=== PATIENT | male | born 1935 | race Caucasian/White ===

== ENCOUNTER 2016-10-30 20:37 | Emergency (ER) | payer OTHER ==
[~2016-10-30] VITALS: Ht 182.9 cm; Wt 84.8 kg
[~2016-10-30 20:37] MED LIST: ACYC1CAP16 PO; ATOR20TA15 PO; BUSP10TA PO; BUTA1CAP PO; CLON0.1T PO; COQ-100C2 PO; DICL75TA PO; FISH1000 PO; GLUC15002 PO; MIRA50TA PO; PLAV75TA29 PO; POLY17S PO; ZOLP5TAB3 PO
[2016-10-30 20:39] VITALS: BP_SYST 198; BP_SYST 217; BP_DIAS 102; BP_DIAS 94; PULSE 73; RESP 16; TEMP 98.9; O2SAT 97
--- NOTE | 2016-10-30 20:56 | PD ---
HPI Chief Complaint: Neuro Symptoms/ Deficits Time Seen by Provider: 20:46 Travel History International Travel<30 days: No Contact w/Intl Traveler<30days: No Traveled to known affect area: No History of Present Illness HPI 81-year-old male arrives to the ER by private vehicle due to paresthesias involving the right upper extremity which were first noticed at rest about 2 hours ago. They lasted approximately one hour. The patient has had no symptom otherwise. Illnesses blood pressure was high at home on the order of about 200/ 100. The patient has no complaint in the ER however expresses concern involving billing with his prior visit for a similar complaint. Patient reports he takes Plavix for a history of TIA. A consultation by Dr. Garland performed in March which was about 8 months ago following a similar complaint. Diagnosis of TIA was made in the presence of a negative carotid artery ultrasound, negative brain MRI and an MRA of the head showing nonvisualization of the right vertebral artery with otherwise normal basilar vasculature. PFSH Past Medical History Arthritis: Yes Heart Rhythm Problems: No Cancer: No Cardiovascular Problems: Yes (htn, metronic linq loop recorder placed 04/27/16) High Cholesterol: Yes Chest Pain: No Congestive Heart Failure: No Cerebrovascular Accident: Yes Diabetes: No Diminished Hearing: No Gastrointestinal Disorders: No Genitourinary: Yes (OVER ACTIVE BLADDER) Hypertension: Yes Immune Disorder: No Kidney Stones: Yes Musculoskeletal: Yes Neurologic: Yes Psychiatric: No Reproductive: No Respiratory: No Immunizations Current: No Myocardial Infarction: No Past Surgical History Abdominal Surgery: Yes (HEMRROIDECTOMY 1962;HERNIA) Ear Surgery: Yes Genitourinary Surgery: Yes (PENILE IMPLANT) Thoracic Surgery: Yes (RIB REMOVAL DUE TO PLEURISY AND PNEUMONIA) Other Surgery: Yes Social History Alcohol Use: No Tobacco Use: No Substance Use: No Allergies-Medications (Allergen,Severity, Reaction): Coded Allergies: Oxybutynin (Verified Allergy, Intermediate, Rash, 10/30/16) Reported Meds & Prescriptions Reported Meds & Active Scripts Active Clonidine (Clonidine HCl) 0.1 Mg Tab 0.1 Mg PO BID Reported Plavix (Clopidogrel Bisulfate) 75 Mg Tab 75 Mg PO DAILY Buspirone (Buspirone HCl) 10 Mg Tab 5 Mg PO DAILY Fish Oil (Buchanan-3 Fatty Acids) 1,000 Mg Cap 1.5 Cap PO DAILY Glucosamine 1500 Complex (Idrmgfaipal-Xnqdlcemzrm-Lfs C-) 1 Cap Cap 2 Caplet PO DAILY Coq-10 (Coenzyme Q10 (Ubidecarenone)) 100 Mg Cap 200 Mg PO DAILY Polyethylene Glycol 3350 Powder (Polyethylene Glycol) 17 Gm Pow 17 Gm PO DAILY Fioricet (Duueuoaabf-Zhodjrgnfcjsm-Tuprsben) 50-300-40 Mg Cap 1-2 Cap PO Q6H PRN Zolpidem (Zolpidem Tartrate) 5 Mg Tab 5 Mg PO HS PRN Diclofenac Sodium DR (Diclofenac Sodium) 75 Mg Tabdr 75 Mg PO DAILY PRN Atorvastatin (Atorvastatin Calcium) 20 Mg Tab 20 Mg PO HS Myrbetriq (Mirabegron) 50 Mg Tab 50 Mg PO DAILY Zovirax (Acyclovir) 200 Mg Cap 200 Mg PO BID PRN Review of Systems Except as stated in HPI: all other systems reviewed are Neg General / Constitutional: No: Fever Physical Exam Narrative GENERAL: 81-year-old male well-nourished well-developed pleasant no acute distress SKIN: Focused skin assessment warm/dry. HEAD: Atraumatic. Normocephalic. EYES: Pupils equal and round. No scleral icterus. No injection or drainage. ENT: No nasal bleeding or discharge. Mucous membranes pink and moist. NECK: Trachea midline. No JVD. CARDIOVASCULAR: Regular rate and rhythm. No murmur appreciated. RESPIRATORY: No accessory muscle use. Clear to auscultation. Breath sounds equal bilaterally. GASTROINTESTINAL: Abdomen soft, non-tender, nondistended. Hepatic and splenic margins not palpable. MUSCULOSKELETAL: No obvious deformities. No clubbing. No cyanosis. No edema. NEUROLOGICAL: Speech memory and mentation normal. CNII-XII normal. Normal gait. Cerebellar function normal. PSYCHIATRIC: Appropriate mood and affect; insight and judgment normal. Data Data Last Documented VS Vital Signs Date Time Temp Pulse Resp B/P Pulse Ox O2 Delivery O2 Flow Rate FiO2 10/30/16 20:39 98.9 73 16 217/102 97 198/94 10/30/16 20:39 Room Air Vital signs reviewed Orders Electrocardiogram (10/30/16 20:46) Sodium Chloride 0.9% Flush (Ns Flush) (10/30/16 21:00) Clonidine (Catapres) (10/30/16 21:00) [facility] Medical Decision Making Medical Screen Exam Complete: Yes Emergency Medical Condition: Yes Medical Record Reviewed: Yes Differential Diagnosis Ischemic stroke, hemorrhagic stroke, arrhythmia, hypoglycemia, paresthesia of peripheral etiology Narrative Course The patient has no neurologic deficit on my exam at this time of his arrival or upon reassessment at 2109. A TIA work up was ordered however the patient refused all testing here in the ER. He was very preoccupied with potential bills from his insurance provider, [employer]. The patient will be discharged from the ER with a diagnosis of paresthesia of the right arm. We had a discussion with supervisor in charge present about the role of testing in the ER and the potential for serious complications should the patient leave without undergoing any testing. The discussion occurred at [id number] approximately. The patient verbalized understanding that my recommendation as the doctor of record was for him to undergo blood work, EKG and imaging. He understands that by refusing the testing a diagnosis may be missed and he may consequently suffer complication from the following partial list which includes but is not limited to permanent injury, permanent disability, pain and suffering, financial catastrophic loss, and potentially even . He understands that the nature of our conversation would be recorded in the EMR. As a courtesy to the patient, whose understanding in this scenario is cogent, informed, well reasoned and balanced, and would not be changed based on the discharge diagnosis, we will discharge him with diagnosis as listed below following a long conversation as noted. He states he will see Dr Puri in the morning in his office or at his health club where he sees him every morning. He understands he can return anytime and has verbalized intent to maintain a low threshold to do so. Overall clinical impression is likely TIA, which is in keeping with diagnosis made by our neurologist 8 months ago, however without further testing will be relegated to the fairly non-specific diagnosis of paresthesia and other far more serious diagnoses are not entirely excluded. I re-entered the room after the conversation to double check with the patient about his wishes and even the EKG was discussed. Pt demonstrates excellent capacity for independent decision making. He understands we're most willing to help him any way possible. Diagnosis Primary Impression: Paresthesia of right arm Referrals: Neurologist 1 day Additional Instructions: You have a choice when it comes to health care, and we are glad that you chose [facility]. Hopefully, we have met your expectations on today's visit. You are welcome to return to [facility] at any time, as we are committed to meeting the health care needs of our community. Med/Other Pt SpecificInfo: No Change to Meds Disposition: 01 DISCHARGE HOME Condition: Tyrel Carcamo MD Oct 30, 2016 20:56
[2016-10-30] MEDS ORDERED: SODIUM CHLORIDE 0.9% FLUSH 10 ML FLUSH IVF PRN (21:00)
[2016-10-30] MEDS ORDERED: cloNIDine HCL 0.1 MG TAB PO ONE (21:00)
[2016-10-31] MEDS ORDERED: COQ-100C5 (17:10)
== END 2016-10-30 21:27 | disposition home or self-care (01) ==
LOC: PHED 20:37
DX: R20.2 Paresthesia of skin (principal)
CPT/HCPCS: 99281

== ENCOUNTER 2016-10-31 16:47 | Emergency (ER) | payer OTHER ==
[~2016-10-31] VITALS: Ht 182.9 cm; Wt 81.8 kg
--- NOTE | 2016-10-31 16:56 | PD ---
HPI Chief Complaint: headache Time Seen by Provider: 16:52 Travel History International Travel<30 days: No Contact w/Intl Traveler<30days: No Traveled to known affect area: No History of Present Illness HPI 81-year-old male with history of migraine headaches, TIA, recent cataract surgery on his left eye on September 25, here by ambulance for evaluation of headache. Patient reports that the headache started at around noon and believes that it may have been caused by the sun shining in his left eye which was recently operated on. Headache is now diffuse. There was gradual worsening of his head pain which is now 10 out of 10. Patient has history of migraines, however he reports he has not had a headache in the last 4 years. He also experienced right arm numbness at onset of headache which lasted for about an hour. No weakness or focal deficits. No visual disturbances. No fevers or recent illness. PFSH Past Medical History Anemia: Yes (BORDERLINE) Arthritis: Yes Anxiety: Yes Heart Rhythm Problems: No Cancer: No Cardiovascular Problems: Yes (htn, metronic linq loop recorder placed 04/27/16) High Cholesterol: Yes Chest Pain: No Congestive Heart Failure: No Cerebrovascular Accident: Yes (TIA'S) Diabetes: No Diminished Hearing: No Gastrointestinal Disorders: No Gout: Yes Genitourinary: Yes (OVER ACTIVE BLADDER) Hypertension: Yes Immune Disorder: No Kidney Stones: Yes Musculoskeletal: Yes Neurologic: Yes Psychiatric: No Reproductive: No Respiratory: No Immunizations Current: No Migraines: Yes Myocardial Infarction: No Pneumonia: Yes Shingles: Yes Past Surgical History Abdominal Surgery: Yes (HEMRROIDECTOMY 1962; RIGHT INGUINAL HERNIA) Ear Surgery: Yes Eye Surgery: Yes (LEFT CATARACT: SEPTEMBER 25, 2016) Genitourinary Surgery: Yes (PENILE IMPLANT, TURP: AGE 71) Thoracic Surgery: Yes (RIB REMOVAL DUE TO PLEURISY AND PNEUMONIA) Other Surgery: Yes Social History Alcohol Use: No Tobacco Use: No Substance Use: No Allergies-Medications (Allergen,Severity, Reaction): Coded Allergies: Oxybutynin (Verified Allergy, Intermediate, Rash, 10/30/16) Reported Meds & Prescriptions Reported Meds & Active Scripts Active Clonidine (Clonidine HCl) 0.1 Mg Tab 0.1 Mg PO BID Reported Coq-10 Tr (Coenzyme Q10 (Ubidecarenone)) 100 Mg Cap Plavix (Clopidogrel Bisulfate) 75 Mg Tab 75 Mg PO DAILY Buspirone (Buspirone HCl) 10 Mg Tab 5 Mg PO DAILY Fish Oil ([place]ber[place]-3 Fatty Acids) 1,000 Mg Cap 1.5 Cap PO DAILY Glucosamine 1500 Complex (Tsvqakkkkun-Zpvktwopqrs-Pqn C-) 1 Cap Cap 2 Caplet PO DAILY Polyethylene Glycol 3350 Powder (Polyethylene Glycol) 17 Gm Pow 17 Gm PO DAILY Fioricet (Nswgbyiqzx-Lvkrqjnqcjpjc-Nqxnvbwq) 50-300-40 Mg Cap 1-2 Cap PO Q6H PRN Zolpidem (Zolpidem Tartrate) 5 Mg Tab 5 Mg PO HS PRN Diclofenac Sodium DR (Diclofenac Sodium) 75 Mg Tabdr 75 Mg PO DAILY PRN Atorvastatin (Atorvastatin Calcium) 20 Mg Tab 20 Mg PO HS Myrbetriq (Mirabegron) 50 Mg Tab 50 Mg PO DAILY Zovirax (Acyclovir) 200 Mg Cap 200 Mg PO BID PRN Review of Systems Except as stated in HPI: all other systems reviewed are Neg Physical Exam Narrative GENERAL: Well-developed, well-nourished, comfortable, no acute distress. GCS 15. SKIN: Focused skin assessment warm/dry. No rash. HEAD: Atraumatic. Normocephalic. EYES: Pupils equal and round. No scleral icterus. No injection or drainage. Bilateral corneas are clear. Ocular pressures using the Shawn-Pen shows an average of 21 mmHg in the right eye and 19 mmHg in the left eye. ENT: Mucous membranes pink and moist. NECK: Trachea midline. No JVD. No nuchal rigidity. CARDIOVASCULAR: Regular rate and rhythm. RESPIRATORY: No accessory muscle use. Clear to auscultation. Breath sounds equal bilaterally. GASTROINTESTINAL: Abdomen soft, non-tender, nondistended. MUSCULOSKELETAL: No obvious deformities. No clubbing. No cyanosis. No edema. NEUROLOGICAL: Awake and alert. No obvious cranial nerve deficits. Motor grossly within normal limits. Normal speech. Diffuse resting tremor. No focal deficits or weakness. Normal ixbzpo-wzwy-gaugth test bilaterally. No pronator drift. PSYCHIATRIC: Appropriate mood and affect; insight and judgment normal. Data Data Last Documented VS Vital Signs Date Time Temp Pulse Resp B/P Pulse Ox O2 Delivery O2 Flow Rate FiO2 10/31/16 19:37 82 16 187/96 96 Room Air 10/31/16 17:02 100.0 Orders Electrocardiogram (10/31/16 16:52) Prothrombin Time / Inr (Pt) (10/31/16 16:52) Act Partial Throm Time (Ptt) (10/31/16 16:52) Complete Blood Count With Diff (10/31/16 16:52) Comprehensive Metabolic Panel (10/31/16 16:52) Ct Brain W/O Iv Contrast(Rout) (10/31/16 16:52) Ecg Monitoring (10/31/16 16:52) Iv Access Insert/Monitor (10/31/16 16:52) Oximetry (10/31/16 16:52) Sodium Chloride 0.9% Flush (Ns Flush) (10/31/16 17:00) Metoclopramide Inj (Reglan Inj) (10/31/16 17:00) Hwsv-Fxspl-Jcaa 325-50-40 Mg (Fioricet 3 (10/31/16 17:00) Valproic Acid (Depakene) (10/31/16 16:54) Morphine Inj (Morphine Inj) (10/31/16 18:15) Proparacaine 0.5% Opth Soln (Alcaine 0.5 (10/31/16 19:30) Labs Laboratory Tests Test 10/31/16 17:22 White Blood Count 5.0 TH/MM3 Red Blood Count 3.78 MIL/MM3 Hemoglobin 12.8 GM/DL Hematocrit 36.5 % Mean Corpuscular Volume 96.7 FL Mean Corpuscular Hemoglobin 33.8 PG Mean Corpuscular Hemoglobin 34.9 % Concent Red Cell Distribution Width 11.3 % Platelet Count 173 TH/MM3 Mean Platelet Volume 7.5 FL Neutrophils (%) (Auto) 65.6 % Lymphocytes (%) (Auto) 24.2 % Monocytes (%) (Auto) 8.6 % Eosinophils (%) (Auto) 1.1 % Basophils (%) (Auto) 0.5 % Neutrophils # (Auto) 3.3 TH/MM3 Lymphocytes # (Auto) 1.2 TH/MM3 Monocytes # (Auto) 0.4 TH/MM3 Eosinophils # (Auto) 0.1 TH/MM3 Basophils # (Auto) 0.0 TH/MM3 CBC Comment DIFF FINAL Differential Comment Prothrombin Time 11.5 SEC Prothromb Time International 1.0 RATIO Ratio Activated Partial 26.1 SEC Thromboplast Time Sodium Level 140 MEQ/L Potassium Level 4.1 MEQ/L Chloride Level 103 MEQ/L Carbon Dioxide Level 27.9 MEQ/L Anion Gap 9 MEQ/L Blood Urea Nitrogen 12 MG/DL Creatinine 0.91 MG/DL Estimat Glomerular Filtration 80 ML/MIN Rate Random Glucose 106 MG/DL Calcium Level 8.8 MG/DL Total Bilirubin 0.6 MG/DL Aspartate Amino Transf 24 U/L (AST/SGOT) Alanine Aminotransferase 26 U/L (ALT/SGPT) Alkaline Phosphatase 64 U/L Total Protein 7.5 GM/DL Albumin 3.8 GM/DL Valproic Acid (Depakene) Level 25 MCG/ML [facility] Medical Decision Making Medical Screen Exam Complete: Yes Emergency Medical Condition: Yes Medical Record Reviewed: Yes Differential Diagnosis Migraine headache, tension headache, cluster headache, SAH, meningitis/ encephalitis unlikely Narrative Course Initial vital signs show heart rate 92, blood pressure 202/103, pulse ox 97% on room air CBC shows WBC 5, hemoglobin 12.8, hematocrit 36.5, platelets 173. CMP is unremarkable. Depakote level is 25. CT head: Negative noncontrast head CT. Patient was given a dose of Fioricet, Reglan, and morphine. He was made aware of all findings. Overall he looks very comfortable. There are no focal neurologic findings. He tells me he cannot tell if his headache has improved since receiving any of the medications, however he states he would like to go home. Chart review shows that the patient was here yesterday for right arm paresthesias, however refuse CT head because he did not believe his insurance company would cover it, and requested to be discharged home against the advice of the physician. I told the patient I would like to admit him for overnight observation for symptomatic management and BP controlled. Currently he is not displaying any signs of hypertensive crisis other than headache with elevated blood pressure as well as for further CVA work-up. Again he tells me that he does not want stay in the hospital and would rather go home so he can lay down in his own bed. He states he will follow-up with his primary care physician Dr. Haskins tomorrow. He was informed on when to return to the emergency department. He verbalizes understanding and agreement with plan. Diagnosis Primary Impression: Cephalgia Qualified Code: R51 - Intractable headache, unspecified chronicity pattern, unspecified headache type Additional Impressions: Paresthesia of right arm Elevated blood pressure reading Referrals: Primary Care Physician 1 day Additional Instructions: Follow-up with your primary care physician tomorrow. Return to the emergency department for worsening symptoms or any other concerns. Disposition: 01 DISCHARGE HOME Condition: Ronaldo Ayers MD Oct 31, 2016 16:56
[2016-10-31] MEDS ORDERED: SODIUM CHLORIDE 0.9% FLUSH 10 ML FLUSH IVF PRN (17:00)
[2016-10-31] MEDS ORDERED: ACETAMIN 325 MG/BUTALBITAL 50 MG/CAFFEINE 40 MG TAB PO ONE (17:00)
[2016-10-31] MEDS ORDERED: METOCLOPRAMIDE HCL 10 MG/2 ML VIAL IV PUSH ONE (17:00)
[2016-10-31 17:02] VITALS: BP 202/103; PULSE 92; RESP 16; TEMP 100; O2SAT 97
[2016-10-31 17:10] VITALS: O2SAT 97
[2016-10-31] MEDS ORDERED: COQ-100C5 (17:10)
[2016-10-31 17:40] LABS: AUTOMATED NEUTROPHIL # 3.3 TH/MM3 (1.8-7.7); BASOPHIL % 0.5 % (0.0-2.0); EOSINOPHIL # 0.1 TH/MM3 (0-0.4); EOSINOPHIL % 1.1 % (0.0-4.0); HEMATOCRIT 36.5 % (39.0-51.0); HEMO FLAGS DIFF FINAL; LYMPH % 24.2 % (9.0-44.0); LYMPHOCYTE # 1.2 TH/MM3 (1.0-4.8); MEAN CELL VOLUME 96.7 FL (80.0-100.0); MEAN CORPUSCULAR HEMOGLOBIN 33.8 PG (27.0-34.0); MEAN CORPUSCULAR HGB CONC 34.9 % (32.0-36.0); MONO % 8.6 % (0.0-8.0); NEUT % 65.6 % (16.0-70.0); PLATELET COUNT 173 TH/MM3 (150-450); RED BLOOD COUNT 3.78 MIL/MM3 (4.50-5.90); RED CELL DISTRIBUTION WIDTH 11.3 % (11.6-17.2)
[2016-10-31 17:54] LABS: CHLORIDE 103 MEQ/L (98-107); POTASSIUM 4.1 MEQ/L (3.5-5.1); SODIUM (NA) 140 MEQ/L (136-145)
[2016-10-31 17:57] LABS: ANION GAP 9 MEQ/L (5-15); BICARBONATE 27.9 MEQ/L (21.0-32.0); BLOOD UREA NITROGEN 12 MG/DL (7-18)
[2016-10-31 18:00] LABS: ALT (GPT) 26 U/L (12-78); APTT (PATIENT) 26.1 SEC (24.3-30.1); AST (GOT) 24 U/L (15-37); GLOMERULAR FILTRATION RATE 80 ML/MIN (>89); PROTHROMBIN TIME - PATIENT 11.5 SEC (9.8-11.6)
[2016-10-31 18:02] LABS: TOTAL BILIRUBIN ADULT 0.6 MG/DL (0.2-1.0)
[2016-10-31 18:03] LABS: ALKALINE PHOSPHATASE 64 U/L (45-117)
[2016-10-31] MEDS ORDERED: MORPHINE SULFATE 4 MG/ML INJ IV PUSH ONE (18:15)
[2016-10-31 18:24] VITALS: BP 199/90; PULSE 90; O2SAT 98
[2016-10-31 19:01] VITALS: BP 212/96; PULSE 88; RESP 16; O2SAT 98
--- NOTE | 2016-10-31 19:05 | RADHPO ---
EXAM DATE/TIME: 10/31/2016 18:40 [place] COMPARISON: CT BRAIN W/O CONTRAST, March 29, 2016, 16:38. INDICATIONS : Patient complains of headache and dizziness. RADIATION DOSE: 68.00 CTDIvol (mGy) MEDICAL HISTORY : Hypertension. Cardiovascular disease migranes SURGICAL HISTORY : chest surgery ENCOUNTER: Initial ACUITY: 1 day PAIN SCALE: 5/10 LOCATION: cranial TECHNIQUE: Multiple contiguous axial images were obtained of the head. Using automated exposure control and adj ustment of the mA and/or kV according to patient size, radiation dose was kept as low as reasonably a chievable to obtain optimal diagnostic quality images. FINDINGS: CEREBRUM: The ventricles are normal for age. No evidence of midline shift, mass lesion, hemorrhage or acute in farction. No extra-axial fluid collections are seen. POSTERIOR FOSSA: The cerebellum and brainstem are intact. The 4th ventricle is midline. The cerebellopontine angle i s unremarkable. EXTRACRANIAL: The visualized portion of the orbits is intact. SKULL: The calvaria is intact. No evidence of skull fracture. CONCLUSION: Negative noncontrast head CT. Abad Weinstein MD on October 31, 2016 at 19:03 Board Certified Radiologist. This report was verified electronically.
[2016-10-31] MEDS ORDERED: PROPARACAINE HCL 0.5% OPHT SOLN 15 ML BTL EACH EYE ONE (19:30)
[2016-10-31 19:37] VITALS: BP 187/96; PULSE 82; RESP 16; O2SAT 96
--- NOTE | 2016-11-01 15:02 | EKG ---
Date Performed: 10/31/2016 Time Performed: 17:02:31 PTAGE: 81 years EKG: Sinus rhythm INCOMPLETE RIGHT BUNDLE BRANCH BLOCK Since previous tracing, no significant change noted BORDERLINE ECG PREVIOUS TRACING : 03/29/2016 16.25 DOCTOR: Umer Lawson Interpretating Date/Time 11/01/2016 14:58:01
== END 2016-10-31 19:59 | disposition home or self-care (01) ==
LOC: PHED 16:47
DX: R51 Headache (principal); R20.2 Paresthesia of skin; I10 Essential (primary) hypertension; I45.10 Unspecified right bundle-branch block; E78.00 Pure hypercholesterolemia, unspecified; Z86.73 Personal history of transient ischemic attack (TIA), and cerebral infarction without residual deficits; M10.9 Gout, unspecified; Z87.442 Personal history of urinary calculi
CPT/HCPCS: 70450; 80053; 80164; 85025; 85610; 85730; 93005; 96374; 96375; 99285; J2270; J2765

== ENCOUNTER 2016-11-01 09:45 | Emergency (ER) | payer OTHER ==
[~2016-11-01] VITALS: Ht 182.9 cm; Wt 87.0 kg
[~2016-11-01 09:45] MED LIST changes: -COQ-100C2 PO; +COQ-100C5
[2016-11-01 09:51] VITALS: BP 144/73; PULSE 74; RESP 16; TEMP 98.4; O2SAT 96
[2016-11-01] MEDS ORDERED: PROCHLORPERAZINE INJ 10 MG/2 ML VIAL IV PUSH ONE (10:15)
[2016-11-01] MEDS ORDERED: diphenhydrAMINE HCL 50 MG/ML VIAL IV PUSH ONE (10:15)
[2016-11-01] MEDS ORDERED: DEXAMETHASONE SOD PHOS 20 MG/5 ML VIAL IV PUSH ONE (10:15)
[2016-11-01] MEDS ORDERED: SODIUM CHLORID 0.9% 500 ML INJ 500 ML IV ONE (10:15)
[2016-11-01 10:57] LABS: AUTOMATED NEUTROPHIL # 3.2 TH/MM3 (1.8-7.7); BASOPHIL % 0.4 % (0.0-2.0); EOSINOPHIL % 0.4 % (0.0-4.0); HEMATOCRIT 34.7 % (39.0-51.0); HEMO FLAGS DIFF FINAL; LYMPH % 25.1 % (9.0-44.0); LYMPHOCYTE # 1.3 TH/MM3 (1.0-4.8); MEAN CELL VOLUME 96.8 FL (80.0-100.0); MEAN CORPUSCULAR HGB CONC 34.1 % (32.0-36.0); MONO % 10.9 % (0.0-8.0); NEUT % 63.2 % (16.0-70.0); PLATELET COUNT 181 TH/MM3 (150-450); RED BLOOD COUNT 3.58 MIL/MM3 (4.50-5.90); RED CELL DISTRIBUTION WIDTH 11.3 % (11.6-17.2); WHITE BLOOD COUNT 5.1 TH/MM3 (4.0-11.0)
[2016-11-01 11:00] VITALS: BP 152/72; PULSE 74; RESP 16; O2SAT 96
[2016-11-01 11:24] LABS: CHLORIDE 106 MEQ/L (98-107); POTASSIUM 4.4 MEQ/L (3.5-5.1); SODIUM (NA) 142 MEQ/L (136-145)
[2016-11-01 11:27] LABS: ANION GAP 7 MEQ/L (5-15); BICARBONATE 28.8 MEQ/L (21.0-32.0); BLOOD UREA NITROGEN 10 MG/DL (7-18)
[2016-11-01 11:30] LABS: ALT (GPT) 24 U/L (12-78); AST (GOT) 25 U/L (15-37)
[2016-11-01 11:31] LABS: GLOMERULAR FILTRATION RATE 75 ML/MIN (>89)
[2016-11-01 11:32] LABS: TOTAL BILIRUBIN ADULT 0.5 MG/DL (0.2-1.0)
[2016-11-01 11:33] LABS: ALKALINE PHOSPHATASE 58 U/L (45-117)
--- NOTE | 2016-11-01 11:42 | PD ---
HPI Chief Complaint: Headache Time Seen by Provider: 09:54 Travel History International Travel<30 days: No Contact w/Intl Traveler<30days: No Traveled to known affect area: No History of Present Illness HPI Patient is a 81 year old male who comes in complaining of a headache. He was here yesterday when he had a CT scan and was given Morphine. He was offered admission at the time, but refused. He says he was at home and he took two pills for migraines, which he does not know the name of, but continues to have pressure to his entire head. He says overall the pain is a little better. He has had some nausea, no vomiting. He denies fever or chills. He denies any falls or head trauma. PFSH Past Medical History Hx Anticoagulant Therapy: Yes Anemia: Yes (BORDERLINE) Arthritis: Yes Anxiety: Yes Heart Rhythm Problems: No Cancer: No Cardiovascular Problems: Yes (htn, metronic linq loop recorder placed 04/27/16) High Cholesterol: Yes Chest Pain: No Congestive Heart Failure: No Cerebrovascular Accident: Yes Diabetes: No Diminished Hearing: No Gastrointestinal Disorders: No Gout: Yes Genitourinary: Yes (OVER ACTIVE BLADDER) Headaches: Yes Hypertension: Yes Immune Disorder: No Kidney Stones: Yes Musculoskeletal: Yes Neurologic: Yes Psychiatric: No Reproductive: No Respiratory: No Immunizations Current: No Migraines: Yes Myocardial Infarction: No Pneumonia: Yes Shingles: Yes Tetanus Vaccination: < 5 Years Past Surgical History Abdominal Surgery: Yes (HEMRROIDECTOMY 1963; RIGHT INGUINAL HERNIA) Ear Surgery: Yes Eye Surgery: Yes (LEFT CATARACT: SEPTEMBER 25, 2016) Genitourinary Surgery: Yes (PENILE IMPLANT, TURP: AGE 71) Thoracic Surgery: Yes (RIB REMOVAL DUE TO PLEURISY AND PNEUMONIA) Other Surgery: Yes Social History Alcohol Use: No Tobacco Use: No Substance Use: No Allergies-Medications (Allergen,Severity, Reaction): Coded Allergies: Oxybutynin (Verified Allergy, Intermediate, Rash, 11/01/16) Reported Meds & Prescriptions Reported Meds & Active Scripts Active Clonidine (Clonidine HCl) 0.1 Mg Tab 0.1 Mg PO BID Reported Coq-10 Tr (Coenzyme Q10 (Ubidecarenone)) 100 Mg Cap Plavix (Clopidogrel Bisulfate) 75 Mg Tab 75 Mg PO DAILY Buspirone (Buspirone HCl) 10 Mg Tab 5 Mg PO DAILY Fish Oil ([place]-3 Fatty Acids) 1,000 Mg Cap 1.5 Cap PO DAILY Glucosamine 1500 Complex (Zesadgzdwrp-Pdwjfxlmnbl-Hfi C-) 1 Cap Cap 2 Caplet PO DAILY Polyethylene Glycol 3350 Powder (Polyethylene Glycol) 17 Gm Pow 17 Gm PO DAILY Fioricet (Jpfmyhyljt-Fhyeokovskmpt-Fulpcstm) 50-300-40 Mg Cap 1-2 Cap PO Q6H PRN Zolpidem (Zolpidem Tartrate) 5 Mg Tab 5 Mg PO HS PRN Diclofenac Sodium DR (Diclofenac Sodium) 75 Mg Tabdr 75 Mg PO DAILY PRN Atorvastatin (Atorvastatin Calcium) 20 Mg Tab 20 Mg PO HS Myrbetriq (Mirabegron) 50 Mg Tab 50 Mg PO DAILY Zovirax (Acyclovir) 200 Mg Cap 200 Mg PO BID PRN Review of Systems Except as stated in HPI: all other systems reviewed are Neg General / Constitutional: No: Fever, Chills HENT: Positive: Headaches Cardiovascular: No: Chest Pain or Discomfort Respiratory: No: Shortness of Breath Gastrointestinal: Positive: Nausea, No: Vomiting, Abdominal Pain Skin: No Rash, No Change in Pigmentation Neurologic: No: Weakness, Dizziness Physical Exam Narrative GENERAL: Awake and alert, in no acute distress. SKIN: Focused skin assessment warm/dry. HEAD: Atraumatic. Normocephalic. EYES: Pupils equal and round and reactive. No scleral icterus. Extraocular movements intact. ENT: Mucous membranes pink and moist. NECK: Trachea midline. No JVD. CARDIOVASCULAR: Regular rate and rhythm. No murmur appreciated. RESPIRATORY: No accessory muscle use. Clear to auscultation. Breath sounds equal bilaterally. MUSCULOSKELETAL: No obvious deformities. No clubbing. No cyanosis. No edema. NEUROLOGICAL: Awake and alert. No obvious cranial nerve deficits. Motor grossly within normal limits. Normal speech. Normal cerebellar function testing. PSYCHIATRIC: Appropriate mood and affect; insight and judgment normal. Data Data Last Documented VS Vital Signs Date Time Temp Pulse Resp B/P Pulse Ox O2 Delivery O2 Flow Rate FiO2 11/01/16 09:51 98.4 74 16 144/73 96 Orders Complete Blood Count With Diff (11/01/16 10:10) Comprehensive Metabolic Panel (11/01/16 10:10) Iv Access Insert/Monitor (11/01/16 10:10) Prochlorperazine Inj (Compazine Inj) (11/01/16 10:15) Diphenhydramine Inj (Benadryl Inj) (11/01/16 10:15) Dexamethasone Inj (Decadron Inj) (11/01/16 10:15) Sodium Chlorid 0.9% 500 Ml Inj (Ns 500 M (11/01/16 10:15) Labs Laboratory Tests Test 11/01/16 10:50 White Blood Count 5.1 TH/MM3 Red Blood Count 3.58 MIL/MM3 Hemoglobin 11.8 GM/DL Hematocrit 34.7 % Mean Corpuscular Volume 96.8 FL Mean Corpuscular Hemoglobin 33.0 PG Mean Corpuscular Hemoglobin 34.1 % Concent Red Cell Distribution Width 11.3 % Platelet Count 181 TH/MM3 Mean Platelet Volume 7.1 FL Neutrophils (%) (Auto) 63.2 % Lymphocytes (%) (Auto) 25.1 % Monocytes (%) (Auto) 10.9 % Eosinophils (%) (Auto) 0.4 % Basophils (%) (Auto) 0.4 % Neutrophils # (Auto) 3.2 TH/MM3 Lymphocytes # (Auto) 1.3 TH/MM3 Monocytes # (Auto) 0.6 TH/MM3 Eosinophils # (Auto) 0.0 TH/MM3 Basophils # (Auto) 0.0 TH/MM3 CBC Comment DIFF FINAL Differential Comment Sodium Level 142 MEQ/L Potassium Level 4.4 MEQ/L Chloride Level 106 MEQ/L Carbon Dioxide Level 28.8 MEQ/L Anion Gap 7 MEQ/L Blood Urea Nitrogen 10 MG/DL Creatinine 0.96 MG/DL Estimat Glomerular Filtration 75 ML/MIN Rate Random Glucose 113 MG/DL Calcium Level 8.8 MG/DL Total Bilirubin 0.5 MG/DL Aspartate Amino Transf 25 U/L (AST/SGOT) Alanine Aminotransferase 24 U/L (ALT/SGPT) Alkaline Phosphatase 58 U/L Total Protein 6.9 GM/DL Albumin 3.5 GM/DL [facility] Medical Decision Making Medical Screen Exam Complete: Yes Emergency Medical Condition: Yes Medical Record Reviewed: Yes Differential Diagnosis Migraine versus tension headache versus cluster headache Narrative Course Patient is a 81-year-old male comes in complaining of headache. He was seen here yesterday for the same thing at which time he had a normal head CT and was given morphine for pain. Exam shows no neurologic abnormalities. IV established, labs sent. Labs show no acute abnormalities. Patient does have history of migraines, but has not had one in a while. He is given IV fluids, Compazine, Benadryl, steroids. While the nurse went in to give him his medication, he asked what he was receiving and then said he wanted to just take a cab and go home. I discussed with him his reasons for coming in wanting to leave prior to treatment, he stated he just wanted to "go home and take a nap in his own bed." Patient insists he would like to go home. He'll be discharged to follow-up with his neurologist. He is advised to drink plenty of fluids. Advised to return to the ED as needed for any worsening symptoms. Diagnosis Primary Impression: Headache Qualified Code: R51 - Acute nonintractable headache, unspecified headache type Patient Instructions: Acute Headache (ED), General Instructions Additional Instructions: Take Tylenol or Motrin as needed for headache. Drink plenty of fluids at home. Follow-up with her neurologist. Return to the emergency department as needed for any worsening symptoms. Disposition: 01 DISCHARGE HOME Condition: Stable Shonna Watters MD Nov 01, 2016 11:42
[2016-11-01 12:40] VITALS: BP 174/86; PULSE 74; RESP 16; O2SAT 96
== END 2016-11-01 12:49 | disposition home or self-care (01) ==
LOC: PHED 09:45
DX: R51 Headache (principal); E78.00 Pure hypercholesterolemia, unspecified; Z86.73 Personal history of transient ischemic attack (TIA), and cerebral infarction without residual deficits; Z79.01 Long term (current) use of anticoagulants
CPT/HCPCS: 80053; 85025; 96361; 96374; 96375; 99284; J0780; J1100; J1200; J7040